=== PATIENT | male | born 1980 | race African-American/Black ===

== ENCOUNTER 2023-05-08 09:09 | Emergency (ER) | payer SELFPAY ==
[~2023-05-08] VITALS: Ht 177.8 cm; Wt 115.2 kg
[2023-05-08] VITALS (10 sets, daily range): BP systolic 105–125; BP diastolic 58–80
[2023-05-08] MEDS ORDERED: METHOCARBAMOL500 MG PO (11:47)
[2023-05-08] MEDS ORDERED: MELOXICAM7.5 MG PO (11:47)
== END 2023-05-08 12:03 | disposition home or self-care (01) | DRG 563 ==
LOC: ED 09:09
DX: S39.012A Strain of muscle, fascia and tendon of lower back, initial encounter (principal); J45.909 Unspecified asthma, uncomplicated; X58.XXXA Exposure to other specified factors, initial encounter